=== PATIENT | female | born 1985 | race Caucasian/White ===

== ENCOUNTER 2019-09-15 20:14 | Inpatient (IN) | payer SELFPAY ==
[2019-09-15] MEDS ORDERED: Nalbuphine 10 MG/1 ML Vial IVPUSH PRN (21:00)
[2019-09-15] MEDS ORDERED: Sodium Chloride 0.9% 10 ML SDV IV PRN (21:00)
[2019-09-15] MEDS ORDERED: Misoprostol 200 MCG Tab PO PRN (21:00)
[2019-09-15] MEDS ORDERED: Sodium Chloride 0.9% 10 ML Syringe FLUSH PRN (21:00)
[2019-09-15] MEDS ORDERED: Ondansetron 4 MG/2 ML SDV IVPUSH PRN (21:00)
[2019-09-15] MEDS ORDERED: Tranexamic Acid 1,000 MG in Sodium Chloride 0.9% 100 ML IV PRN (21:00)
[2019-09-15] MEDS ORDERED: Lidocaine 1% 50 ML MDV INJECT PRN (21:00)
[2019-09-15] MEDS ORDERED: Butorphanol 1 MG/ML SDV IVPUSH PRN (21:00)
[2019-09-15] MEDS ORDERED: Sodium Chloride 0.9% 2.5 ML Syringe FLUSH PRN (21:00)
[2019-09-15] MEDS ORDERED: Oxytocin/0.9 % Sodium Chloride 30 UNIT/500 ML BAG IV SCH ×2 (21:00→23:00)
[2019-09-15] MEDS ORDERED: Methylergonovine 0.2 MG/1 ML Amp IM PRN (21:00)
[2019-09-15] MEDS ORDERED: Carboprost Tromethamine 250 MCG/1 ML Amp IM PRN (21:00)
[2019-09-15] MEDS ORDERED: Water For Irrigation,Sterile 1,000 ML Container IRR PRN (21:00)
[2019-09-15] MEDS: Lactated Ringers 1,000 ML IV SCH (22:39)
[2019-09-16] MEDS ORDERED: Ropivacaine HCl/PF 100 ML ONE (00:23)
[2019-09-16] MEDS ORDERED: fentaNYL 100 MCG/2 ML SDV ONE (00:23)
--- NOTE | 2019-09-16 00:44 | PCM.PREANE ---
Preanesthetic Assessment - Anesthesia/Transfusion/Family Hx Anesthesia History: No Prior Anesthesia Family History of Anesthesia Reaction: No - Physical Assessment NPO Status Date: 09/16/19 NPO Status Time: 22:00 Height: 1.68 m Weight: 74.389 kg ASA Class: 1 - Lab Values: Laboratory Last Values WBC 13.63 K/uL (4.0-11.0) H 09/15/19 21: RBC 3.91 M/uL (4.30-5.90) L 09/15/19 21: Hgb 12.1 g/dL (12.0-16.0) 09/15/19 21: Hct 36.3 % (36.0-46.0) 09/15/19 21: MCV 92.8 fL (80.0-98.0) 09/15/19 21: MCH 30.9 pg (27.0-32.0) 09/15/19 21: MCHC 33.3 g/dL (31.0-37.0) 09/15/19 21: RDW Std Deviation 47.6 fl (28.0-62.0) 09/15/19 21: RDW Coeff of Librado 14 % (11.0-15.0) 09/15/19 21: Plt Count 289 K/uL (150-400) 09/15/19 21: MPV 10.50 fL (7.40-12.00) 09/15/19 21: Nucleated RBC % 0.0 /100WBC 09/15/19 21: Nucleated RBCs # 0 K/uL 09/15/19 21:22 Membrane Rupture POSITIVE 09/15/19 20:30 Blood Type O NEGATIVE 09/15/19 21:22 Antibody Screen NEGATIVE 09/15/19 21:22 - Allergies Allergies/Adverse Reactions: Allergies Allergy/AdvReac Type Severity Reaction Status Date / Time poison samantha extract Allergy Rash Verified 10/23/14 12:56 - Acknowledgements Anesthesia Type Planned: Epidural Pt an Appropriate Candidate for the Planned Anesthesia: Yes Alternatives and Risks of Anesthesia Discussed w Pt/Guardian: Yes Pt/Guardian Understands and Agrees with Anesthesia Plan: Yes PreAnesthesia Questionnaire - HOME MEDS Home Medications: Home Meds Magnesium Oxide [Magnesium] 400 mg PO DAILY 09/15/19 [History] [id number]/Iron Fumarate/FA/DSS [ 19 Tablet] 1 tab PO DAILY 09/15/19 [ History] valACYclovir HCl [Valtrex] 500 mg PO BID 09/15/19 [History] - CURRENT (IN HOUSE) MEDS Current Meds: Current Medications Butorphanol Tartrate (Stadol) 1 mg IVPUSH Q1H PRN PRN Reason: Pain Carboprost Tromethamine (Hemabate Ds) 250 mcg IM ASDIRECTED PRN PRN Reason: Post Hemorrhage Lactated Ringer's (Ringers, Lactated) 1,000 mls @ 150 mls/hr IV ASDIRECTED VEENA Last Admin: 09/15/19 22:39 Dose: 999 mls/hr Oxytocin/Sodium Chloride (Oxytocin 30 Unit/500 Ml-Ns) 30 unit in 500 mls @ 999 mls/hr IV TITRATE VEENA Tranexamic Acid 1,000 mg/ (Sodium Chloride) 110 mls @ 660 mls/hr IV ONETIME PRN PRN Reason: Bleeding Oxytocin/Sodium Chloride (Oxytocin 30 Unit/500 Ml-Ns) 30 unit in 500 mls @ 2 mls/hr IV TITRATE VEENA; Protocol Last Admin: 09/15/19 23:08 Dose: 2 munits/min, 2 mls/hr Lidocaine HCl (Xylocaine 1%) 50 ml INJECT ONETIME PRN PRN Reason: Laceration repair Methylergonovine Maleate (Methergine) 0.2 mg IM ASDIRECTED PRN PRN Reason: Post Hemorrhage Misoprostol (Cytotec) 200 mcg PO ONETIME PRN PRN Reason: Post Hemorrhage Nalbuphine HCl (Nubain) 10 mg IVPUSH Q1H PRN PRN Reason: Pain (severe 7-10) Ondansetron HCl (Zofran) 4 mg IVPUSH Q6H PRN PRN Reason: Nausea/Vomiting Sodium Chloride (Saline Flush) 10 ml FLUSH ASDIRECTED PRN PRN Reason: Keep Vein Open Sodium Chloride (Saline Flush) 2.5 ml FLUSH ASDIRECTED PRN PRN Reason: Keep Vein Open Sodium Chloride (Normal Saline) 10 ml IV ASDIRECTED PRN PRN Reason: IV Use Sterile Water (Sterile Water For Irrigation) 1,000 ml IRR ASDIRECTED PRN PRN Reason: delivery Discontinued Medications Fentanyl (Sublimaze) Confirm Administered Dose 100 mcg .ROUTE .STK-MED ONE Stop: 09/16/19 00:24 Ropivacaine (Naropin 0.2%) Confirm Administered Dose 100 mls @ as directed .ROUTE .STK-MED ONE Stop: 09/16/19 00:24
--- NOTE | 2019-09-16 00:47 | PCM.PRNOTE ---
- Free Text/Narrative Note: Anes Note Patient requests epidural for L&D. Sitting position, level L3-L4 midlines approach. Sterile technique. Chloraprep scrub to lumbar area. Sterile fenestrated drape applied. Epidural space easily achieved single attempt with ease using HAYLEE technique. HAYLEE at 4 cm. Cath threaded 5 cm with ease. Cath secured at skin at 10 cm. Cath secured with sterile clear adhesive dressing. Test 0030 3 cc 1.5% lido with epi negative. 0035 load 10 cc 0.2 % ropiv with 1 mcg cc fentanyl in slow divided doses. 0040 Pump started wtih 90 cc same solution. Rate is 8 cc hr with 6 cc q 20 min prn bolus. Igll well Time with patient [phone] Mac Espino [employer] SALES [employer]ULTANT
[2019-09-16] MEDS: Lactated Ringers 1,000 ML IV SCH (02:20)
[2019-09-16] MEDS ORDERED: Ampicillin/Sulbactam Na 3 GM in Sodium Chloride 0.9% 100 ML IV ONE (04:00)
--- NOTE | 2019-09-16 04:13 | PCM.PRNOTE ---
- Free Text/Narrative Note: Anes NOte I was called in delivery. Surgeon is requesting a sitting dose for extra analgesia. Time with patient [id number] Mac Espino CRNA
--- NOTE | 2019-09-16 04:30 | PCM.DEL ---
L & D Note - General Info Date of Service: 09/16/19 Mother's Due Date: 09/19/19 - Delivery Note Labor: Augmented by Oxytocin Delivery Outcome: Livebirth Infant Delivery Method: Spontaneous Vaginal Delivery-Single Presentation: Left Occiput Anterior (MALKA) Nuchal Cord: Reduced Prep: Other Anesthesia Type: None, Epidural Episiotomy Type: None Laceration: 1st Degree, Labial Suture type: Vicryl Suture size: 3-0 Placenta: Intact, Spontaneous Cord: 3 Vessels Estimated Blood Loss: 300 Resuscitation Needed: No [place]born: Suctioned Score 1 min: 8 Score 5 min: 8 - General Info Date of Service: 09/16/19 - Patient Data Weight - Most Recent: 74.389 kg Lab Results Last 24 Hours: Laboratory Results - last 24 hr 09/15/19 09/15/19 09/15/19 Range/Units 20:30 21:22 21:22 WBC 13.63 H (4.0-11.0) K/uL RBC 3.91 L (4.30-5.90) M/uL Hgb 12.1 (12.0-16.0) g/dL Hct 36.3 (36.0-46.0) % MCV 92.8 (80.0-98.0) fL MCH 30.9 (27.0-32.0) pg MCHC 33.3 (31.0-37.0) g/dL RDW Std Deviation 47.6 (28.0-62.0) fl RDW Coeff of Librado 14 (11.0-15.0) % Plt Count 289 (150-400) K/uL MPV 10.50 (7.40-12.00) fL Nucleated RBC % 0.0 /100WBC Nucleated RBCs # 0 K/uL Membrane Rupture POSITIVE Blood Type O NEGATIVE Antibody Screen NEGATIVE Med Orders - Current: Current Medications Butorphanol Tartrate (Stadol) 1 mg IVPUSH Q1H PRN PRN Reason: Pain Carboprost Tromethamine (Hemabate Ds) 250 mcg IM ASDIRECTED PRN PRN Reason: Post Hemorrhage Lactated Ringer's (Ringers, Lactated) 1,000 mls @ 150 mls/hr IV ASDIRECTED VEENA Last Admin: 09/15/19 22:39 Dose: 999 mls/hr Oxytocin/Sodium Chloride (Oxytocin 30 Unit/500 Ml-Ns) 30 unit in 500 mls @ 999 mls/hr IV TITRATE VEENA Tranexamic Acid 1,000 mg/ (Sodium Chloride) 110 mls @ 660 mls/hr IV ONETIME PRN PRN Reason: Bleeding Oxytocin/Sodium Chloride (Oxytocin 30 Unit/500 Ml-Ns) 30 unit in 500 mls @ 2 mls/hr IV TITRATE VEENA; Protocol Last Admin: 09/15/19 23:08 Dose: 2 munits/min, 2 mls/hr Ampicillin Sodium/Sulbactam (Sodium 3 gm/ Sodium Chloride) 100 mls @ 200 mls/ hr IV ONETIME ONE Stop: 09/16/19 04:29 Last Admin: 09/16/19 04:21 Dose: 200 mls/hr Ampicillin Sodium/Sulbactam (Sodium 1.5 gm/ Sodium Chloride) 50 mls @ 150 mls/ hr IV Q6H VEENA Lidocaine HCl (Xylocaine 1%) 50 ml INJECT ONETIME PRN PRN Reason: Laceration repair Last Admin: 09/16/19 04:26 Dose: 50 ml Methylergonovine Maleate (Methergine) 0.2 mg IM ASDIRECTED PRN PRN Reason: Post Hemorrhage Last Admin: 09/16/19 04:17 Dose: 0.2 mg Misoprostol (Cytotec) 200 mcg PO ONETIME PRN PRN Reason: Post Hemorrhage Nalbuphine HCl (Nubain) 10 mg IVPUSH Q1H PRN PRN Reason: Pain (severe 7-10) Ondansetron HCl (Zofran) 4 mg IVPUSH Q6H PRN PRN Reason: Nausea/Vomiting Sodium Chloride (Saline Flush) 10 ml FLUSH ASDIRECTED PRN PRN Reason: Keep Vein Open Sodium Chloride (Saline Flush) 2.5 ml FLUSH ASDIRECTED PRN PRN Reason: Keep Vein Open Sodium Chloride (Normal Saline) 10 ml IV ASDIRECTED PRN PRN Reason: IV Use Sterile Water (Sterile Water For Irrigation) 1,000 ml IRR ASDIRECTED PRN PRN Reason: delivery Discontinued Medications Fentanyl (Sublimaze) Confirm Administered Dose 100 mcg .ROUTE .K-MED ONE Stop: 09/16/19 00:24 Ropivacaine (Naropin 0.2%) Confirm Administered Dose 100 mls @ as directed .ROUTE .STK-MED ONE Stop: 09/16/19 00:24 - Problem List & Annotations (1) Vaginal delivery SNOMED Code(s): 155504205 Code(s): O80 - ENCOUNTER FOR FULL-TERM UNCOMPLICATED DELIVERY Status: Acute Current Visit: Yes (2) Retained placenta SNOMED Code(s): 192224931 Code(s): O73.0 - RETAINED PLACENTA WITHOUT HEMORRHAGE Status: Acute Current Visit: Yes Qualifiers: Retained placenta detail: complete placenta Qualified Code(s): O73.0 - Retained placenta without hemorrhage - Problem List Review Problem List Initiated/Reviewed/Updated: Yes - My Orders Last 24 Hours: My Active Orders 09/15/19 20:47 Up ad Claudine [RC] ASDIRECTED Vital Signs [RC] PER UNIT ROUTINE Resuscitation Status Routine 09/15/19 20:54 Patient Status [ADT] Routine 09/15/19 21:00 May Shower [RC] ASDIRECTED Notify Provider [RC] PRN Butorphanol [Stadol] 1 mg IVPUSH Q1H PRN Carboprost Tromethamine [Hemabate DS] 250 mcg IM ASDIRECTED PRN Lactated Ringers [Ringers, Lactated] 1,000 ml IV ASDIRECTED Lidocaine 1% [Xylocaine 1%] 50 ml INJECT ONETIME PRN Methylergonovine [Methergine] 0.2 mg IM ASDIRECTED PRN Nalbuphine [Nubain] 10 mg IVPUSH Q1H PRN Ondansetron [Zofran] 4 mg IVPUSH Q6H PRN Oxytocin/0.9 % Sodium Chloride [Oxytocin 30 Unit/500 ML-NS] 30 unit in 500 ml IV TITRATE Sodium Chloride 0.9% [Normal Saline] 10 ml IV ASDIRECTED PRN Sodium Chloride 0.9% [Saline Flush] 10 ml FLUSH ASDIRECTED PRN Sodium Chloride 0.9% [Saline Flush] 2.5 ml FLUSH ASDIRECTED PRN Tranexamic Acid [Cyklokapron] 1,000 mg Sodium Chloride 0.9% [Normal Saline] 100 ml IV ONETIME Water For Irrigation,Sterile [Sterile Water for Irrigation] 1,000 ml IRR ASDIRECTED PRN miSOPROStoL [Cytotec] 200 mcg PO ONETIME PRN Scalp Electrode [WOMSER] Per Unit Routine Peripheral IV Insertion Adult [OM.PC] Routine 09/15/19 21:22 RPR (SYPHILIS SERO) W/ RFLX [REF] Routine 09/15/19 23:00 Oxytocin/0.9 % Sodium Chloride [Oxytocin 30 Unit/500 ML-NS] 30 unit in 500 ml IV TITRATE 09/16/19 04:00 Ampicillin/Sulbactam Na [Unasyn] 3 gm Sodium Chloride 0.9% [Normal Saline] 100 ml IV ONETIME 09/16/19 10:00 Ampicillin/Sulbactam Na [Unasyn] 1.5 gm Sodium Chloride 0.9% [Normal Saline] 50 ml IV Q6H
[2019-09-16] MEDS ORDERED: Acetaminophen 500 MG Tab PO PRN (04:35)
[2019-09-16] MEDS ORDERED: Bisacodyl 10 MG Supp RECTAL PRN (04:35)
[2019-09-16] MEDS ORDERED: Lanolin 100% Cream 7 GM Tube TOP PRN (04:35)
[2019-09-16] MEDS ORDERED: Tranexamic Acid 1,000 MG in Sodium Chloride 0.9% 100 ML IV PRN (04:35)
[2019-09-16] MEDS ORDERED: oxyCODONE 5 MG Tab PO PRN (04:35)
[2019-09-16] MEDS ORDERED: Ibuprofen 400 MG Tab PO PRN (04:35)
[2019-09-16] MEDS ORDERED: Methylergonovine 0.2 MG/1 ML Amp IM PRN (04:35)
[2019-09-16] MEDS ORDERED: Ondansetron 4 MG/2 ML SDV IVPUSH ONE (04:53)
[2019-09-16] MEDS: Ibuprofen 800 MG Tab PO PRN ×3 (07:50→22:26)
[2019-09-16] MEDS: Witch Hazel Medicated Pads 40/Jar TOP PRN (07:51)
[2019-09-16] MEDS: Benzocaine/Menthol 20%-0.5% Spray 78 GM Cannister TOP PRN (07:51)
--- NOTE | 2019-09-16 09:59 | PCM48HPAN ---
Post Anesthesia Note - EVALUATION WITHIN 48HRS OF ANESTHETIC Vital Signs in Normal Range: Yes Patient Participated in Evaluation: Yes Respiratory Function Stable: Yes Airway Patent: Yes Cardiovascular Function Stable: Yes Hydration Status Stable: Yes Pain Control Satisfactory: Yes Nausea and Vomiting Control Satisfactory: Yes Mental Status Recovered: Yes
[2019-09-16] MEDS: Ampicillin/Sulbactam Na 1.5 GM in Sodium Chloride 0.9% 50 ML IV SCH ×3 (10:11→22:30)
[2019-09-16] MEDS: Acetaminophen 500 MG Tab PO PRN ×2 (10:20→18:29)
[2019-09-16] MEDS: Docusate Sodium 100 MG Cap PO PRN ×2 (10:20→22:09)
--- NOTE | 2019-09-16 12:38 | OR ---
SURGEON: Joyce Wolf M.D. DATE OF PROCEDURE: 09/16/2019 PREOPERATIVE DIAGNOSES: 1. A 39-4/7-week intrauterine . 2. Premature rupture of membranes with induction. 3. Term spontaneous vaginal delivery. POSTOPERATIVE DIAGNOSES: 1. A 39-4/7-week intrauterine . 2. Premature rupture of membranes with induction. 3. Term spontaneous vaginal delivery. PROCEDURES: 1. Pitocin augmentation of labor. 2. Term spontaneous vaginal delivery. 3. Repair of a first-degree laceration and a left labial laceration. 4. Manual extraction of the placenta. PRIMARY SURGEON: Joyce Wolf M.D. ANESTHESIA: Epidural. ESTIMATED BLOOD LOSS: Less than 300 mL. FINDINGS: A liveborn female, scores 8 and 8, weighing 3270 g. The placenta was retained for 1 hour. Manual extraction was performed. The placenta was intact with 3 vessels. There was a first-degree perineal laceration and a left labial laceration that required suturing for hemostasis. COMPLICATIONS: None known. DISPOSITION: Stable to Recovery. BRIEF HISTORY: This is a 33-year-old female. She is G1, P0. She presents at 39-3/7 weeks' gestation with spontaneous rupture of membranes at approximately 6:30 p.m. She has some irregular contractions but very mild. She was evaluated. She was 4 cm and 80%. Fluid was clear. She has a history of HSV. Bright light examination was negative. She is group B strep negative. There was a forebag, which was ruptured. She was rechecked an hour later. She had no significant change; therefore, Pitocin was initiated, and after initiating the Pitocin, within 2 hours, she was 8 to 9 cm. She received an epidural for pain control. At this point, she was complete, and I was called for delivery. DESCRIPTION OF PROCEDURE: With the patient in dorsal lithotomy position, the patient pushed over a 2-hour time period to 5+ station, at which time the head was delivered spontaneously and atraumatically over the perineum with support with subsequent delivery of the 's shoulders and body without any difficulty. The infant was bulb suctioned by nose and mouth, and the cord was clamped x2 and cut after 1 minute of life, and the was handed to the mother in the presence of the nurse attending the delivery. The infant was a liveborn female, scores 8 and 8, weighing 3270 g. Cord blood was collected for cord ABGs as well as routine cord blood sampling. Pitocin was initiated after delivery of the infant to assist with delivery of the placenta. Despite fundal massage, IV Pitocin, and gentle traction, the placenta did not deliver at 30 minutes; therefore, I did have her push the bolus for her epidural to see if I could manually extract the placenta; however, she still was having significant perineal pain; therefore, I waited another 30 minutes and called Anesthesia, and finally, we were able to get another bolus from her epidural, and with fundal massage, I was able to separate the plane between the anterior uterus and the placenta, and once the plane was , the placenta actually came out intact. Manual exploration of the uterus revealed no retained products of conception, and the patient was started on Unasyn IV. The perineal laceration was repaired with a running locked suture of 3-0 Monocryl for the vaginal mucosa and a subcuticular suture for the skin. The left labial laceration was repaired with a [id number] suture due to bleeding. After delivery of the placenta, she did have an additional gush of blood, and she did receive Methergine IM; however, the bleeding soon resolved and was stable, and I would not consider this a hemorrhage. Final sponge, needle, and instrument counts were correct. There were no known complications. Mother and baby are in LDR in good condition. MEIR CARTER /[id number]
[2019-09-17] MEDS: Ibuprofen 800 MG Tab PO PRN ×3 (04:16→16:46)
[2019-09-17] MEDS: Ampicillin/Sulbactam Na 1.5 GM in Sodium Chloride 0.9% 50 ML IV SCH (04:17)
--- NOTE | 2019-09-17 09:28 | PCM.PNPP ---
- General Info Date of Service: 09/17/19 Subjective Update: Patient states perineum feels sore, but is otherwise doing well. Minimal lochia. with difficulty. Ambulating and voiding. Functional Status: Reports: Pain Controlled, Tolerating Diet, Ambulating, Urinating - Review of Systems General: Reports: No Symptoms HEENT: Reports: No Symptoms Pulmonary: Reports: No Symptoms Cardiovascular: Reports: No Symptoms Gastrointestinal: Reports: No Symptoms Genitourinary: Reports: No Symptoms Musculoskeletal: Reports: No Symptoms Skin: Reports: No Symptoms Neurological: Reports: No Symptoms Psychiatric: Reports: No Symptoms - Patient Data Vital Signs - Most Recent: Last Vital Signs Temp 36.2 C 09/17/19 07:27 Pulse 78 09/17/19 07:27 Resp 14 09/17/19 07:27 BP 92/53 L 09/17/19 07:27 Pulse Ox 97 09/17/19 07:27 Weight - Most Recent: 74.389 kg I&O - Last 24 Hours: Intake & Output 09/16/19 09/17/19 09/17/19 22:59 06:59 14:59 Intake Total 4 Balance 4 Lab Results - Last 24 Hours: Laboratory Results - last 24 hr 09/16/19 09/17/19 Range/Units 05:38 06:00 Hgb 10.5 L (12.0-16.0) g/dL Hct 32.3 L (36.0-46.0) % Screen POSITIVE (NEGATIVE) RhIG Candidate? YES Rhogam Indicated YES, BABY RH POS H KB Screen SEE NOTE KB Cells Counted 27 KB Red Cells Counted 4266 KB % Cells 0.63 Doses of RhIg Required 2 Med Orders - Current: Current Medications Acetaminophen (Tylenol Extra Strength) 500 mg PO Q4H PRN PRN Reason: Pain Acetaminophen (Tylenol Extra Strength) 1,000 mg PO Q4H PRN PRN Reason: Pain Last Admin: 09/16/19 18:29 Dose: 1,000 mg Benzocaine/Menthol (Dermoplast Pain Relief 20%-0.5% [place]) 78 gm TOP ASDIRECTED PRN PRN Reason: Perineal Comfort Measure Last Admin: 09/16/19 07:51 Dose: 1 can Bisacodyl (Dulcolax) 10 mg RECTAL ONETIME PRN PRN Reason: Constipation Docusate Sodium (Colace) 100 mg PO BID PRN PRN Reason: Constipation Last Admin: 09/16/19 22:09 Dose: 100 mg Emollient Ointment (Lansinoh Hpa) 0 gm TOP ASDIRECTED PRN PRN Reason: Sore Nipples Last Admin: 09/16/19 07:51 Dose: 1 tube Ampicillin Sodium/Sulbactam (Sodium 1.5 gm/ Sodium Chloride) 50 mls @ 150 mls/ hr IV Q6H [facility] Last Admin: 09/17/19 04:17 Dose: 150 mls/hr Tranexamic Acid 1,000 mg/ (Sodium Chloride) 110 mls @ 660 mls/hr IV ONETIME PRN PRN Reason: Bleeding Ibuprofen (Motrin) 400 mg PO Q4H PRN PRN Reason: Pain Ibuprofen (Motrin) 800 mg PO Q6H PRN PRN Reason: Pain Last Admin: 09/17/19 04:16 Dose: 800 mg Methylergonovine Maleate (Methergine) 0.2 mg IM ONETIME PRN PRN Reason: Excessive Vaginal Bleeding Oxycodone HCl (Oxycodone) 5 mg PO Q2H PRN PRN Reason: Pain Witch Gale (Tucks) 1 pad TOP ASDIRECTED PRN PRN Reason: comfort care Last Admin: 09/16/19 07:51 Dose: 1 tub Discontinued Medications Butorphanol Tartrate (Stadol) 1 mg IVPUSH Q1H PRN PRN Reason: Pain Carboprost Tromethamine (Hemabate Ds) 250 mcg IM ASDIRECTED PRN PRN Reason: Post Hemorrhage Fentanyl (Sublimaze) Confirm Administered Dose 100 mcg .ROUTE .STK-MED ONE Stop: 09/16/19 00:24 Last Admin: 09/16/19 17:11 Dose: Not Given Lactated Ringer's (Ringers, Lactated) 1,000 mls @ 150 mls/hr IV ASDIRECTED [facility] Last Admin: 09/16/19 02:20 Dose: 150 mls/hr Oxytocin/Sodium Chloride (Oxytocin 30 Unit/500 Ml-Ns) 30 unit in 500 mls @ 999 mls/hr IV TITRATE [facility] Tranexamic Acid 1,000 mg/ (Sodium Chloride) 110 mls @ 660 mls/hr IV ONETIME PRN PRN Reason: Bleeding Oxytocin/Sodium Chloride (Oxytocin 30 Unit/500 Ml-Ns) 30 unit in 500 mls @ 2 mls/hr IV TITRATE VEENA; Protocol Last Infusion: 09/16/19 02:13 Dose: 6 munits/min, 6 mls/hr Ropivacaine (Naropin 0.2%) Confirm Administered Dose 100 mls @ as directed .ROUTE .STK-MED ONE Stop: 09/16/19 00:24 Last Admin: 09/16/19 17:11 Dose: Not Given Ampicillin Sodium/Sulbactam (Sodium 3 gm/ Sodium Chloride) 100 mls @ 200 mls/ hr IV ONETIME ONE Stop: 09/16/19 04:29 Last Admin: 09/16/19 04:21 Dose: 200 mls/hr Lidocaine HCl (Xylocaine 1%) 50 ml INJECT ONETIME PRN PRN Reason: Laceration repair Last Admin: 09/16/19 04:26 Dose: 50 ml Methylergonovine Maleate (Methergine) 0.2 mg IM ASDIRECTED PRN PRN Reason: Post Hemorrhage Last Admin: 09/16/19 04:17 Dose: 0.2 mg Misoprostol (Cytotec) 200 mcg PO ONETIME PRN PRN Reason: Post Hemorrhage Nalbuphine HCl (Nubain) 10 mg IVPUSH Q1H PRN PRN Reason: Pain (severe 7-10) Ondansetron HCl (Zofran) 4 mg IVPUSH Q6H PRN PRN Reason: Nausea/Vomiting Ondansetron HCl (Zofran) 4 mg IVPUSH ONETIME ONE Stop: 09/16/19 04:54 Last Admin: 09/16/19 05:11 Dose: 4 mg Sodium Chloride (Saline Flush) 10 ml FLUSH ASDIRECTED PRN PRN Reason: Keep Vein Open Sodium Chloride (Saline Flush) 2.5 ml FLUSH ASDIRECTED PRN PRN Reason: Keep Vein Open Sodium Chloride (Normal Saline) 10 ml IV ASDIRECTED PRN PRN Reason: IV Use Sterile Water (Sterile Water For Irrigation) 1,000 ml IRR ASDIRECTED PRN PRN Reason: delivery Last Admin: 09/16/19 04:30 Dose: 2,000 ml - Interaction Infant Disposition, : [place] to Nursery Feeding: Attempted ; Nursed Fair/Poor Support Person: - Recovery Exam Fundal Tone: Firm Fundal Level: 1 Fingerbreadths Below Umbilicus Fundal Placement: Midline Lochia Amount: Scant Lochia Color: Rubra/Red Other Perinuem Description: First degree vaginal labial abraision Bladder Status: Voiding Urinary Elimination: Voided - Exam General: Alert, Oriented Neck: Supple Lungs: Clear to Auscultation, Normal Respiratory Effort Cardiovascular: Regular Rate, Regular Rhythm GI/Abdominal Exam: Soft, Non-Tender Extremities: Non-Tender Skin: Warm, Dry, Intact Neurological: No New Focal Deficit Psy/Mental Status: Alert, Normal Affect, Normal Mood - Problem List & Annotations (1) Retained placenta SNOMED Code(s): 384657892 Code(s): O73.0 - RETAINED PLACENTA WITHOUT HEMORRHAGE Status: Acute Current Visit: Yes Qualifiers: Retained placenta detail: complete placenta Qualified Code(s): O73.0 - Retained placenta without hemorrhage (2) Vaginal delivery SNOMED Code(s): 091721998 Code(s): O80 - ENCOUNTER FOR FULL-TERM UNCOMPLICATED DELIVERY Status: Acute Current Visit: Yes - Problem List Review Problem List Initiated/Reviewed/Updated: Yes - Assessment Assessment:: 33yo P1 s/p and manual extraction of placenta, PPD#1 - Plan Plan:: 1. Plan to discharge home today if infant cleared by lpn cma. 2. Rh negative - s/p Rhogam. 3. Manual extraction of placenta - s/p Unasyn, no signs/symptoms of infection.
[2019-09-17] MEDS: Docusate Sodium 100 MG Cap PO PRN ×2 (09:58→21:42)
[2019-09-17] MEDS: Acetaminophen 500 MG Tab PO PRN (20:23)
[2019-09-17] MEDS: Magnesium Oxide 400 MG Tab PO SCH (22:32)
[2019-09-18] MEDS: Ibuprofen 800 MG Tab PO PRN ×3 (00:57→16:24)
[2019-09-18] MEDS: Benzocaine/Menthol 20%-0.5% Spray 78 GM Cannister TOP PRN (04:30)
[2019-09-18] MEDS: Acetaminophen 500 MG Tab PO PRN (04:31)
[2019-09-18] MEDS: Witch Hazel Medicated Pads 40/Jar TOP PRN (04:31)
[2019-09-18] MEDS: Magnesium Oxide 400 MG Tab PO SCH (08:59)
[2019-09-18] MEDS: Docusate Sodium 100 MG Cap PO PRN (08:59)
--- NOTE | 2019-09-18 09:56 | PCM.PNPP ---
- General Info Date of Service: 09/18/19 Subjective Update: Patient doing well. Minimal lochia. and pumping going better. Pain controlled. Ambulating and voiding. Functional Status: Reports: Pain Controlled, Tolerating Diet, Ambulating, Urinating - Review of Systems General: Reports: No Symptoms HEENT: Reports: No Symptoms Pulmonary: Reports: No Symptoms Cardiovascular: Reports: No Symptoms Gastrointestinal: Reports: No Symptoms Genitourinary: Reports: No Symptoms Musculoskeletal: Reports: No Symptoms Skin: Reports: No Symptoms Neurological: Reports: No Symptoms Psychiatric: Reports: No Symptoms - Patient Data Vital Signs - Most Recent: Last Vital Signs Temp 36.6 C 09/18/19 08:00 Pulse 80 09/18/19 08:00 Resp 15 09/18/19 08:00 BP 107/65 09/18/19 08:00 Pulse Ox 96 09/18/19 08:00 Weight - Most Recent: 74.389 kg Med Orders - Current: Current Medications Acetaminophen (Tylenol Extra Strength) 500 mg PO Q4H PRN PRN Reason: Pain Acetaminophen (Tylenol Extra Strength) 1,000 mg PO Q4H PRN PRN Reason: Pain Last Admin: 09/18/19 04:31 Dose: 1,000 mg Benzocaine/Menthol (Dermoplast Pain Relief 20%-0.5% Ewen) 78 gm TOP ASDIRECTED PRN PRN Reason: Perineal Comfort Measure Last Admin: 09/18/19 04:30 Dose: 1 can Bisacodyl (Dulcolax) 10 mg RECTAL ONETIME PRN PRN Reason: Constipation Docusate Sodium (Colace) 100 mg PO BID PRN PRN Reason: Constipation Last Admin: 09/18/19 08:59 Dose: 100 mg Emollient Ointment (Lansinoh Hpa) 0 gm TOP ASDIRECTED PRN PRN Reason: Sore Nipples Last Admin: 09/16/19 07:51 Dose: 1 tube Tranexamic Acid 1,000 mg/ (Sodium Chloride) 110 mls @ 660 mls/hr IV ONETIME PRN PRN Reason: Bleeding Ibuprofen (Motrin) 400 mg PO Q4H PRN PRN Reason: Pain Ibuprofen (Motrin) 800 mg PO Q6H PRN PRN Reason: Pain Last Admin: 09/18/19 08:59 Dose: 800 mg Magnesium Oxide (Magnesium Oxide) 400 mg PO DAILY VEENA Last Admin: 09/18/19 08:59 Dose: 400 mg Methylergonovine Maleate (Methergine) 0.2 mg IM ONETIME PRN PRN Reason: Excessive Vaginal Bleeding Oxycodone HCl (Oxycodone) 5 mg PO Q2H PRN PRN Reason: Pain Witch Gale (Tucks) 1 pad TOP ASDIRECTED PRN PRN Reason: comfort care Last Admin: 09/18/19 04:31 Dose: 1 tub Discontinued Medications Butorphanol Tartrate (Stadol) 1 mg IVPUSH Q1H PRN PRN Reason: Pain Carboprost Tromethamine (Hemabate Ds) 250 mcg IM ASDIRECTED PRN PRN Reason: Post Hemorrhage Fentanyl (Sublimaze) Confirm Administered Dose 100 mcg .ROUTE .STK-MED ONE Stop: 09/16/19 00:24 Last Admin: 09/16/19 17:11 Dose: Not Given Lactated Ringer's (Ringers, Lactated) 1,000 mls @ 150 mls/hr IV ASDIRECTED VEENA Last Admin: 09/16/19 02:20 Dose: 150 mls/hr Oxytocin/Sodium Chloride (Oxytocin 30 Unit/500 Ml-Ns) 30 unit in 500 mls @ 999 mls/hr IV TITRATE VEENA Tranexamic Acid 1,000 mg/ (Sodium Chloride) 110 mls @ 660 mls/hr IV ONETIME PRN PRN Reason: Bleeding Oxytocin/Sodium Chloride (Oxytocin 30 Unit/500 Ml-Ns) 30 unit in 500 mls @ 2 mls/hr IV TITRATE VEENA; Protocol Last Infusion: 09/16/19 02:13 Dose: 6 munits/min, 6 mls/hr Ropivacaine (Naropin 0.2%) Confirm Administered Dose 100 mls @ as directed .ROUTE .STK-MED ONE Stop: 09/16/19 00:24 Last Admin: 09/16/19 17:11 Dose: Not Given Ampicillin Sodium/Sulbactam (Sodium 3 gm/ Sodium Chloride) 100 mls @ 200 mls/ hr IV ONETIME ONE Stop: 09/16/19 04:29 Last Admin: 09/16/19 04:21 Dose: 200 mls/hr Ampicillin Sodium/Sulbactam (Sodium 1.5 gm/ Sodium Chloride) 50 mls @ 150 mls/ hr IV Q6H VEENA Last Admin: 09/17/19 04:17 Dose: 150 mls/hr Lidocaine HCl (Xylocaine 1%) 50 ml INJECT ONETIME PRN PRN Reason: Laceration repair Last Admin: 09/16/19 04:26 Dose: 50 ml Methylergonovine Maleate (Methergine) 0.2 mg IM ASDIRECTED PRN PRN Reason: Post Hemorrhage Last Admin: 09/16/19 04:17 Dose: 0.2 mg Misoprostol (Cytotec) 200 mcg PO ONETIME PRN PRN Reason: Post Hemorrhage Nalbuphine HCl (Nubain) 10 mg IVPUSH Q1H PRN PRN Reason: Pain (severe 7-10) Ondansetron HCl (Zofran) 4 mg IVPUSH Q6H PRN PRN Reason: Nausea/Vomiting Ondansetron HCl (Zofran) 4 mg IVPUSH ONETIME ONE Stop: 09/16/19 04:54 Last Admin: 09/16/19 05:11 Dose: 4 mg Sodium Chloride (Saline Flush) 10 ml FLUSH ASDIRECTED PRN PRN Reason: Keep Vein Open Sodium Chloride (Saline Flush) 2.5 ml FLUSH ASDIRECTED PRN PRN Reason: Keep Vein Open Sodium Chloride (Normal Saline) 10 ml IV ASDIRECTED PRN PRN Reason: IV Use Sterile Water (Sterile Water For Irrigation) 1,000 ml IRR ASDIRECTED PRN PRN Reason: delivery Last Admin: 09/16/19 04:30 Dose: 2,000 ml - Infant Interaction Infant Disposition, : [facility] to Nurs[facility] Feeding: Breastfed ; Nursed Well Support Person: - Recovery Exam Fundal Tone: Firm Fundal Level: 3 Fingerbreadths Below Umbilicus Fundal Placement: Midline Lochia Amount: Small Lochia Color: Rubra/Red Other Perinuem Description: First degree Bladder Status: Voiding Urinary Elimination: Voided - Exam General: Alert, Oriented Neck: Supple Lungs: Clear to Auscultation, Normal Respiratory Effort Cardiovascular: Regular Rate, Regular Rhythm GI/Abdominal Exam: Soft, Non-Tender Extremities: Non-Tender Skin: Warm, Dry, Intact Neurological: No New Focal Deficit Psy/Mental Status: Alert, Normal Affect, Normal Mood - Problem List & Annotations (1) Retained placenta SNOMED Code(s): 418454098 Code(s): O73.0 - RETAINED PLACENTA WITHOUT HEMORRHAGE Status: Acute Current Visit: Yes Qualifiers: Retained placenta detail: complete placenta Qualified Code(s): O73.0 - Retained placenta without hemorrhage (2) Vaginal delivery SNOMED Code(s): 135294335 Code(s): O80 - ENCOUNTER FOR FULL-TERM UNCOMPLICATED DELIVERY Status: Acute Current Visit: Yes - Problem List Review Problem List Initiated/Reviewed/Updated: Yes - My Orders Last 24 Hours: My Active Orders 09/17/19 15:52 Ready for Discharge [RC] PER UNIT ROUTINE 09/17/19 22:15 Magnesium Oxide 400 mg PO DAILY 09/18/19 09:55 Ready for Discharge [RC] PER UNIT ROUTINE - Assessment Assessment:: 33yo P1 s/p and manual extraction of placenta, PPD#2 - Plan Plan:: 1. Plan to discharge home today. Reviewed discharge instructions. 2. Rh negative - s/p Rhogam. 3. Manual extraction of placenta - s/p Unasyn, no signs/symptoms of infection.
== END 2019-09-18 19:10 | disposition home or self-care (01) | DRG 807 ==
LOC: MW.OB 20:14 → MW.OBCHECK 20:14 → MW.OB 20:54 → OBSVTOIN 09-16 03:01 → MW.OB 09-16 08:00
PROVIDERS: ADMIT Obstetrics & Gynecology; ATTEND Obstetrics & Gynecology
PROC: 10E0XZZ Delivery of Products of Conception, External Approach (ICD-10-PCS; principal; 2019-09-16)
PROC: 0HQ9XZZ Repair Perineum Skin, External Approach (ICD-10-PCS; 2019-09-16)
PROC: 3E0334Z Introduction of Serum, Toxoid and Vaccine into Peripheral Vein, Percutaneous Approach (ICD-10-PCS; 2019-09-16)
PROC: 3E0R3BZ Introduction of Anesthetic Agent into Spinal Canal, Percutaneous Approach (ICD-10-PCS; 2019-09-16)
PROC: 00HU33Z Insertion of Infusion Device into Spinal Canal, Percutaneous Approach (ICD-10-PCS; 2019-09-16)
DX: O69.81X0 Labor and delivery complicated by cord around neck, without compression, not applicable or unspecified (principal); Z37.0 Single live birth; Z3A.39 39 weeks gestation of pregnancy; O70.0 First degree perineal laceration during delivery
CPT/HCPCS: 01967; 36415; 36430; 51702; 59025; 59409; 82803; 84112; 85014; 85018; 85027; 85460; 86592; 86593; 86850; 86900; 86901; A9270-GY; J0295; J2001; J2210; J2405; J2590; J2792; J7050; J7120